=== PATIENT | female | born 1945 | race Caucasian/White ===

== ENCOUNTER 2019-12-25 22:04 | Emergency (ER) | payer MEDICARE ==
[~2019-12-25] VITALS: Ht 160 cm; Wt 81.7 kg
[~2019-12-25 22:04] MED LIST: ACETAMINOPHEN-1 EAC1 PO; ADALAT CC30 MG PO; ASPIR 8181 MG PO; FISH OIL 1,001000 M2 PO; KEFLEX500 MG PO; TUMS PO; ZOCOR20 MG PO
[2019-12-26 00:20] LABS: ABSOLUTE BASOPHILS 0.1 thou/uL (0.0-0.2); ABSOLUTE EOSINOPHILS 0.2 thou/uL (0.0-0.7); ABSOLUTE LYMPHOCYTES 2.2 thou/uL (0.8-5.3); EOSINOPHILS 3.1 %; HEMATOCRIT 42.6 % (37.0-47.0); HEMOGLOBIN 14.6 gm/dL (12.0-15.0); LYMPHOCYTES 29.1 %; MCH 29.8 pg (26.0-34.0); MCHC 34.3 g/dL (28.0-37.0); MCV 86.7 fL (80.0-100.0); MONOCYTES 13.9 %; MPV 8.9 fl. (7.2-11.1); NUCLEATED RBCS 0 /100WBC; PLATELET COUNT* 192 thou/uL (150-400); POLYS 52.9 %; RBC 4.91 mil/uL (4.20-5.00); WBC 7.5 thou/uL (4.0-11.0)
[2019-12-26 00:31] LABS: CALCIUM 8.7 mg/dL (8.5-10.1); CREATININE 0.8 mg/dL (0.6-1.3)
[2019-12-26 00:36] LABS: ALBUMIN 3.7 g/dL (3.4-5.0); TOTAL BILIRUBIN 0.4 mg/dL (<0.1-1.0); TOTAL PROTEIN 7.1 g/dL (6.4-8.2)
[2019-12-26] MEDS ORDERED: ANUSOL-HC25 MG RECTAL (02:12)
[2019-12-26 02:44] VITALS: BP 144/86
== END 2019-12-26 02:44 | disposition home or self-care (01) ==
LOC: M.ERS 22:04
PROVIDERS: Personal Emergency Response Attendant
DX: K64.4 Residual hemorrhoidal skin tags (principal); I10 Essential (primary) hypertension; E78.5 Hyperlipidemia, unspecified

== ENCOUNTER 2020-07-20 21:15 | Observation (INO) | payer MEDICARE ==
[~2020-07-20] VITALS: Ht 160 cm; Wt 85.7 kg
[~2020-07-20 21:15] MED LIST changes: +ANUSOL-HC25 MG RECTAL; -ASPIR 8181 MG PO; +BAYER CHEWABLE81 MG PO
[2020-07-20 21:22] VITALS: BP 195/101
[2020-07-20] MEDS ORDERED: CELEBREX50 MG PO (21:30)
[2020-07-20] MEDS ORDERED: FENOFIBRATE150 MG PO (21:30)
[2020-07-20] MEDS ORDERED: OMEGA 3 1,0001 EACH PO (21:31)
[2020-07-20 22:05] LABS: URINE BILIRUBIN NEGATIVE (Negative); URINE BLOOD NEGATIVE (Negative); URINE CLARITY CLEAR; URINE COLOR STRAW; URINE GLUCOSE-RANDOM NEGATIVE (Negative); URINE KETONES NEGATIVE (Negative); URINE LEUKOCYTES 1+ (Negative); URINE NITRITE NEGATIVE (Negative); URINE PROTEIN NEGATIVE (Negative); URINE UROBILINOGEN 0.2 E.U./dl (0.2-1.0)
[2020-07-20 22:11] LABS: CASTS None Seen /LPF (None Seen); MUCUS None Seen strn/LPF (None Seen); SQUAMOUS 4-10 Moderate /LPF (0-3)
[2020-07-20 22:12] LABS: BACTERIA None Seen /HPF (None Seen); CRYSTALS None Seen /LPF (None Seen); URINE RBC None Seen /HPF (0-2); URINE WBC 0-5 Rare /HPF (0-5)
[2020-07-20 22:19] LABS: HEMATOCRIT 44.9 % (37.0-47.0); MCH 29.1 pg (26.0-34.0); MCHC 33.4 g/dL (28.0-37.0); MCV 87.3 fL (80.0-100.0); MPV 8.8 fl. (7.2-11.1); RBC 5.14 mil/uL (4.20-5.00); RDW-CV 13.7 % (10.5-14.5); WBC 5.6 thou/uL (4.0-11.0)
[2020-07-20 22:29] LABS: PROTIME 10.9 Seconds (9.20-11.50)
[2020-07-20 22:47] LABS: CALCIUM 9.1 mg/dL (8.5-10.1); CREATININE 0.7 mg/dL (0.6-1.3); POTASSIUM 3.7 mmol/L (3.5-5.1)
[2020-07-20 22:52] LABS: ALBUMIN 3.7 g/dL (3.4-5.0); TOTAL BILIRUBIN 0.4 mg/dL (<0.1-1.0); TOTAL PROTEIN 6.9 g/dL (6.4-8.2)
[2020-07-21] MEDS ORDERED: NEURONTIN100 MG PO (07:35)
[2020-07-21 07:37] VITALS: BP 154/74
[2020-07-21 09:57] VITALS: BP 156/86
[2020-07-21 10:15] VITALS: BP 159/79
[2020-07-21 12:17] VITALS: BP 153/87
[2020-07-21] MEDS ORDERED: VITAMIN D31250 MC1 PO (13:53)
[2020-07-21 15:57] VITALS: BP 159/80
--- NOTE | 2020-07-21 17:35 | EKG ---
[place] [address] ELECTROCARDIOGRAM REPORT Name: NASH DAY Room: [address] ADM IN .R.#: [id number] Admission: 07/21/20 Attend Phys: Osman Flores Discharge: Date of : 45 Date of Service: 07/20/202124 Report #: [id number] THIS REPORT FOR: //name// [facility] ED Test Date: 2020-07-20 Test Time: 21:25:09 Pat Name: NASH DAY Department: Room: [facility] Gender: F Breadman: ENEDELIA : 1945 Requested By: Mercy Crouch Order Number: [id number] MD: Chilango Snell Measurements Intervals [place] Rate: 85 P: 43 [place]: 181 QRS: -13 QRSD: 100 T: 32 QT: 390 QTc: 464 Interpretive Statements Sinus rhythm Low voltage, precordial leads No previous ECG available for comparison Electronically Signed On 07-21-2020 17:35:07 CDT by Chilango Snell [email or web address] <ELECTRONICALLY SIGNED> By: Chilango Snell MD, [facility] 07/21/20 1735 24 24 Chilango Snell MD, [facility] /EPI
[2020-07-21 20:00] VITALS: BP 167/87
[2020-07-22] VITALS: BP 136/80
[2020-07-22 04:06] VITALS: BP 120/64
[2020-07-22 04:32] LABS: CALCIUM 8.4 mg/dL (8.5-10.1); CREATININE 0.8 mg/dL (0.6-1.3); POTASSIUM 3.8 mmol/L (3.5-5.1)
[2020-07-22 04:39] LABS: HEMATOCRIT 42.1 % (37.0-47.0); HEMOGLOBIN 14.1 gm/dL (12.0-15.0); MCH 29.1 pg (26.0-34.0); MCHC 33.5 g/dL (28.0-37.0); MPV 8.8 fl. (7.2-11.1); RBC 4.83 mil/uL (4.20-5.00); RDW-CV 13.5 % (10.5-14.5); WBC 6.7 thou/uL (4.0-11.0)
[2020-07-22 08:00] VITALS: BP 128/68
[2020-07-22 11:30] VITALS: BP 161/90
[2020-07-22] MEDS ORDERED: CLOPIDOGREL75 MG PO (13:13)
[2020-07-22] MEDS ORDERED: ZOCOR20 MG PO (13:17)
[2020-07-22 14:18] VITALS: BP 161/90
[2020-07-22 15:03] VITALS: BP 161/90
== END 2020-07-22 14:52 | disposition home or self-care (01) ==
LOC: M.ERS 21:15 → M.2W 07-21 03:52 → M.TBA-ER 07-21 03:52 → M.2W 07-21 10:24
PROVIDERS: Family Medicine; Personal Emergency Response Attendant; ADMIT Family Medicine; ATTEND Family Medicine
DX: G45.0 Vertebro-basilar artery syndrome (principal); I66.01 Occlusion and stenosis of right middle cerebral artery; R55 Syncope and collapse; I10 Essential (primary) hypertension; E78.5 Hyperlipidemia, unspecified; M48.00 Spinal stenosis, site unspecified; E66.09 Other obesity due to excess calories; E66.9 Obesity, unspecified; Z68.33 Body mass index [BMI] 33.0-33.9, adult; Z20.822 Contact with and (suspected) exposure to COVID-19; Z79.899 Other long term (current) drug therapy

== ENCOUNTER → 2020-08-07 | Outpatient (CLI) | payer MEDICARE ==
[~2020-08-07] MED LIST changes: +CELEBREX50 MG PO; +CLOPIDOGREL75 MG PO; +FENOFIBRATE150 MG PO; +NEURONTIN100 MG PO; +OMEGA 3 1,0001 EACH PO; +VITAMIN D31250 MC1 PO
== END ==
LOC: M.ULTRA 09:52
PROVIDERS: ATTEND Family Medicine
DX: I66.9 Occlusion and stenosis of unspecified cerebral artery (principal); I63.59 Cerebral infarction due to unspecified occlusion or stenosis of other cerebral artery